=== PATIENT | female | born 1970 | race Caucasian/White ===

== ENCOUNTER 2018-05-13 20:15 | Emergency (ER) | payer SELFPAY ==
[~2018-05-13] VITALS: Ht 154.9 cm; Wt 60.4 kg
[2018-05-13 20:20] VITALS: BP 152/97
--- NOTE | 2018-05-13 20:20 | NUR ---
PATIENT ATTEMPTED TO GIVE URINE AT THIS TIME. OFFERED WATER CUP.
[2018-05-13 21:18] LABS: BASOPHILS % (AUTO) 0.2 % (0.0-2.0); EOSINOPHILS # (AUTO) 0.1 K/uL (0-0.4); EOSINOPHILS % (AUTO) 0.5 % (0.0-4.0); HEMATOCRIT 33.7 % (36-52); HEMOGLOBIN 10.6 g/dL (12.0-18.0); LYMPHOCYTES # (AUTO) 0.6 K/uL (2.0-11.5); LYMPHOCYTES % (AUTO) 6.1 % (20.5-51.1); MEAN CORPUSCULAR HEMOGLOBIN 24 pg (27-31); MEAN CORPUSCULAR HGB CONC 32 g/dL (33-37); MONOCYTES # (AUTO) 0.7 K/uL (0.8-1.0); MONOCYTES % (AUTO) 6.7 % (1.7-9.3); NEUTROPHILS # (AUTO) 8.4 K/uL (1.8-7.7); NEUTROPHILS % (AUTO) 86.5 % (42.2-75.2); PLATELET COUNT (AUTO) 298 K/uL (140-450); RED BLOOD CELL COUNT(AUTO) 4.49 MIL/uL (4.20-6.10); RED CELL DISTRIBUTION WIDTH 15.8 % (11.6-13.7); WHITE BLOOD COUNT (AUTO) 9.7 K/uL (4.8-10.8)
[2018-05-13 21:33] LABS: ANION GAP 14.7 (8-16); CARBON DIOXIDE 25.7 mmol/L (21-32); CREATININE 0.6 mg/dL (0.7-1.3); POTASSIUM 3.4 mmol/L (3.5-5.1)
[2018-05-13 21:39] LABS: ALBUMIN 3.9 g/dL (3.4-5.0); TOTAL BILIRUBIN 0.6 mg/dL (0.0-1.0)
--- NOTE | 2018-05-13 22:42 | NUR ---
PT AMBULATED TO BED 11
--- NOTE | 2018-05-13 22:53 | NUR ---
BIB SELF CO 10/10 EPIGASTRIC PAIN SINCE 3 PM. DENIES VOMITING BUT HAS BEEN NAUSEOUS. REPORTS DIARRHEA YESTERDAY. BOWEL SOUNDS ACTIVE IN ALL 4 QUADRANTS. ABDOMEN SOFT, NON-TENDER. DENIES PMH. PT STATES SHE TOOK IMODIUM AT 1400 FOR DIARRHEA.
[2018-05-13] MEDS ORDERED: KETOROLAC 30 MG/ML VIAL IVP ONE (23:15)
--- NOTE | 2018-05-13 23:46 | NUR ---
US AT BEDSIDE.
[2018-05-14 00:55] VITALS: BP 140/62
--- NOTE | 2018-05-14 00:55 | NUR ---
Patient discharged with v/s stable. Written and verbal after care instructions given and explained. Patient verbalized understanding. Ambulatory with steady gait. All questions addressed prior to discharge. Advised to follow up with PMD.
== END 2018-05-14 00:55 | disposition home or self-care (01) ==
LOC: EDSEX 20:15 → MED 20:15
DX: R10.13 Epigastric pain (principal); R11.0 Nausea
CPT/HCPCS: 36415; 76705; 80053; 81002; 81025; 83690; 85025; 96372; 99284; J1885; Q0092